=== PATIENT | female | born 1995 | race Caucasian/White ===

== ENCOUNTER 2018-04-15 17:24 | Emergency (ER) | payer MEDICAID ==
[~2018-04-15] VITALS: Ht 165.1 cm; Wt 87.1 kg
[2018-04-15 17:36] VITALS: BP 124/76
--- NOTE | 2018-04-15 18:00 | NUR ---
22y/f c/o rash x 2 months severe pruritus, sand paper like feel to rash, has been seen in [facility], pt states she finished benadryl and cortisone cream prescribed with no change, bed down, bedrail up x 1, er md aware and notified of pt status. hx--denies rx---none
--- NOTE | 2018-04-15 19:11 | NUR ---
REPORT FROM JESSIKA BURGESS FOR TRANSFER OF CARE
[2018-04-15 20:24] VITALS: BP 125/78
--- NOTE | 2018-04-15 20:24 | NUR ---
Patient discharged with v/s stable. Written and verbal after care instructions given and explained. Patient alert, oriented and verbalized understanding of instructions. Ambulatory with steady gait. All questions addressed prior to discharge. ID band removed. Patient advised to follow up with PMD. Rx of PERMETHRIN, TRIAMINOLONE, AND BENDADRYL given. Patient educated on indication of medication including possible reaction and side effects. Opportunity to ask questions provided and answered.
== END 2018-04-15 20:24 | disposition home or self-care (01) ==
LOC: MED 17:24
DX: L30.9 Dermatitis, unspecified (principal); F17.200 Nicotine dependence, unspecified, uncomplicated; Z90.89 Acquired absence of other organs
CPT/HCPCS: 99283

== ENCOUNTER 2018-09-23 06:09 | Emergency (ER) | payer MEDICAID ==
[~2018-09-23] VITALS: Ht 160 cm; Wt 86.2 kg
[2018-09-23 06:15] VITALS: BP 119/76
--- NOTE | 2018-09-23 06:15 | NUR ---
TO BED # 04 AMBULATORY, REPORT GIVEN TO KEYA ROSEN
--- NOTE | 2018-09-23 06:26 | NUR ---
BIB FAMILY WITH RIGHT BREAST PAIN WITH DISCHARGE FOR THREE MONTHS. STATES THE DISCHARGE IS YELLOW IN COLOR. DENIES OTHER SYMPTOMS AT THIS TIME. NO DEFORMITY NOTED OR REPORTED. ERMD NOTIFIED OF CONDTION.
--- NOTE | 2018-09-23 06:35 | NUR ---
DR CARRION AT BEDSIDE.
[2018-09-23 06:50] VITALS: BP 119/76
--- NOTE | 2018-09-23 06:50 | NUR ---
Patient discharged with v/s stable. Written and verbal after care instructions given and explained. Patient alert, oriented and verbalized understanding of instructions. Ambulatory with steady gait. All questions addressed prior to discharge. ID band removed. Patient advised to follow up with PMD. Rx of KEFLEX, MOTRIN, BACTRIM given. Patient educated on indication of medication including possible reaction and side effects. Opportunity to ask questions provided and answered.
== END 2018-09-23 06:50 | disposition home or self-care (01) ==
LOC: MED 06:09
DX: N61.0 Mastitis without abscess (principal); Z90.49 Acquired absence of other specified parts of digestive tract
CPT/HCPCS: 99283

== ENCOUNTER 2019-04-18 23:20 | Emergency (ER) | payer MEDICAID ==
[~2019-04-18] VITALS: Ht 160 cm; Wt 90.7 kg
[2019-04-18 23:25] VITALS: BP 141/83
--- NOTE | 2019-04-18 23:25 | NUR ---
TO BED # 12 AMBULATORY
--- NOTE | 2019-04-18 23:55 | NUR ---
Dr. Sahu examining patient.
--- NOTE | 2019-04-19 00:05 | NUR ---
PT CAME INTO ER WITH C/O RASH ON HER EXTREMETIES X 1 DAY. PT STATED SHE TOOK SOME IBUPROFEN AND THEN STARTED TO FEEL ITCHING AND RASH ON HER THIGH AND BACK AREA. PT IS ALERT AND IS ABLE TO RESPOND APPROPRIATELY TO QUESTIONS ASKED. PT HAS NO PAIN AT THIS TIME 0/10. ERMD MADE AWARE OF STATUS, SAFETY MEASURES IN PLACE.
[2019-04-19] MEDS ORDERED: methylPREDNISolone SS 125 MG/2 ML VIAL IM ONE (00:10)
[2019-04-19] MEDS ORDERED: diphenhydrAMINE 50 MG CAP PO ONE (00:10)
[2019-04-19 00:43] VITALS: BP 141/83
--- NOTE | 2019-04-19 00:43 | NUR ---
PT VERBALLY DISCHARGED WITHOUT PAPERWORK AND INSTRUCTIONS. EDUCATED PT REGARDING D/C DIAGNOSIS AND INSTRUCTIONS. PT VERBALIZED UNDERSTANDING OF TEACHING. TOLD PT TO FOLLOW UP WITH PCP AND AND WHEN TO RETURN TO ED. PT VSS. PT DID NOT SIGN D/C PAPERWORK. ALL QUESTIONS ANSWERED.
== END 2019-04-19 00:43 | disposition home or self-care (01) ==
LOC: MED 23:20
DX: L50.9 Urticaria, unspecified (principal)
CPT/HCPCS: 96372; 99283; J2930; Q0163